=== PATIENT | female | born 1995 ===

== ENCOUNTER 2023-03-01 00:07 | Inpatient (IN) | payer MEDICAID ==
[2023-03-01] MEDS ORDERED: Misoprostol 25 MCG (1/4 of 100 MCG) Tab VAG PRN ×2 (00:14)
[2023-03-01] MEDS ORDERED: Terbutaline 1 MG/ML SDV SUBCUT PRN (00:14)
[2023-03-01] MEDS ORDERED: Oxytocin/0.9 % Sodium Chloride 30 UNIT/500 ML BAG IV SCH ×2 (00:15→00:45)
[2023-03-01] MEDS ORDERED: Carboprost Tromethamine 250 MCG/1 mL Vial IM PRN (00:45)
[2023-03-01] MEDS ORDERED: Tranexamic Acid IN NACL,ISO-OS 1,000 MG in Premix Bag 1 BAG IV PRN ×2 (00:45)
[2023-03-01] MEDS ORDERED: Sodium Chloride 0.9% 2.5 ML Syringe FLUSH PRN (00:45)
[2023-03-01] MEDS ORDERED: Sodium Chloride 0.9% 10 ML Syringe FLUSH PRN (00:45)
[2023-03-01] MEDS ORDERED: Butorphanol 1 MG/ML SDV IVPUSH PRN (00:45)
[2023-03-01] MEDS ORDERED: Misoprostol 200 MCG Tab PO PRN (00:45)
[2023-03-01] MEDS ORDERED: Methylergonovine 0.2 MG/1 ML Amp IM PRN ×2 (00:45→13:32)
[2023-03-01] MEDS ORDERED: Sodium Chloride 0.9% 20 ML SDV IV PRN (00:45)
[2023-03-01] MEDS ORDERED: Lidocaine 1% 50 ML MDV INJECT PRN (00:45)
[2023-03-01] MEDS ORDERED: Water For Irrigation,Sterile 1,000 ML Container IRR PRN (00:45)
[2023-03-01 00:59] LABS: HEMATOCRIT 33.3 % (37.0-47.0); HEMOGLOBIN 11.2 g/dL (12.0-16.0); MEAN CORPUSCULAR HEMOGLOBIN 27.6 pg (28.0-32.0); MEAN CORPUSCULAR HGB CONC 33.6 g/dL (32.0-36.0); MEAN PLATELET VOLUME 10.5 fL (9.4-12.3); PLATELET COUNT,PLT 267 K/uL (150-400); RED BLOOD CELL COUNT 4.06 M/uL (4.10-5.30)
[2023-03-01] MEDS ORDERED: Nalbuphine 10 MG/0.5 ML Syringe IVPUSH PRN (06:52)
[2023-03-01] MEDS: Lactated Ringers 1,000 ML IV SCH ×4 (07:30→12:35)
[2023-03-01] MEDS ORDERED: FLU (Flulaval Quad) 2023-24(6MOS UP)/PF 60 MCG/0.5 ML Syringe IM ONE (09:00)
[2023-03-01] MEDS ORDERED: Bupivacaine 0.5% 10 ML SDV ONE (09:09)
[2023-03-01] MEDS ORDERED: Ropivacaine/PF 400 MG/200 ML PCA ONE (09:10)
[2023-03-01] MEDS ORDERED: Phenylephrine HCl 0.5 MG/5 ML AMP ONE (09:30)
[2023-03-01] MEDS ORDERED: ePHEDrine 50 MG/ML SDV IVPUSH PRN ×2 (09:46)
[2023-03-01] MEDS ORDERED: Phenylephrine HCl 0.5 MG/5 ML AMP IVPUSH PRN (09:46)
[2023-03-01] MEDS ORDERED: Ropivacaine HCl/PF 400 MG in Premix Bag 1 BAG EPIDUR SCH (10:00)
[2023-03-01] MEDS ORDERED: ceFAZolin 1 GM Vial ONE (11:41)
[2023-03-01] MEDS ORDERED: Oxytocin 10 Units/1 ML SDV ONE ×2 (11:41→11:50)
[2023-03-01] MEDS ORDERED: Dexamethasone 4 MG/ML 5 ML MDV ONE ×2 (11:43→11:59)
[2023-03-01] MEDS ORDERED: Ondansetron 4 MG/2 ML SDV ONE (11:43)
[2023-03-01] MEDS ORDERED: Morphine PF 10 MG/10 ML SDV ONE (11:52)
[2023-03-01] MEDS ORDERED: Azithromycin 500 MG Vial ONE (11:53)
[2023-03-01] MEDS ORDERED: Ketorolac 30 MG/ML SDV ONE (11:57)
[2023-03-01] MEDS ORDERED: Ropivacaine 0.5% 5 MG/ML 30 ML SDV ONE (11:58)
[2023-03-01] MEDS ORDERED: Ondansetron 4 MG/2 ML SDV IVPUSH PRN ×2 (13:32→16:01)
[2023-03-01] MEDS ORDERED: Bisacodyl 10 MG Supp RECTAL PRN (13:32)
[2023-03-01] MEDS ORDERED: diphenhydrAMINE 50 MG/ML SDV IVPUSH PRN ×2 (13:32→16:01)
[2023-03-01] MEDS ORDERED: Lanolin 100% Cream 7 GM Tube TOP PRN (13:32)
[2023-03-01] MEDS ORDERED: Misoprostol 200 MCG Tab RECTAL PRN (13:32)
[2023-03-01] MEDS ORDERED: Oxytocin 10 Units/1 ML SDV IM PRN (13:32)
[2023-03-01] MEDS ORDERED: Aluminum Hydroxide/Magnesium Hydroxide/Simethicone XS Susp 30 ML Cup PO PRN (13:40)
[2023-03-01] MEDS ORDERED: Simethicone 80 MG Tab.Chew PO PRN (13:40)
[2023-03-01] MEDS ORDERED: oxyCODONE 5 MG Tab PO PRN (13:40)
[2023-03-01] MEDS ORDERED: Acetaminophen 325 MG Tab PO SCH (13:45)
[2023-03-01] MEDS ORDERED: Lactated Ringers 1,000 ML IV SCH (13:45)
[2023-03-01] MEDS ORDERED: Acetaminophen 1,000 MG in Premix Bag 1 BAG IV PRN (13:48)
[2023-03-01] MEDS: Acetaminophen 1,000 MG in Premix Bag 1 BAG IV SCH ×2 (14:12→20:07)
[2023-03-01] MEDS ORDERED: fentaNYL 100 MCG/2 ML SDV IVPUSH PRN (16:01)
[2023-03-01] MEDS ORDERED: Acetaminophen/oxyCODONE 325-5 MG Tab PO PRN (16:01)
[2023-03-01] MEDS: Ketorolac 30 MG/ML SDV IVPUSH SCH (19:34)
[2023-03-01] MEDS: Docusate Sodium 100 MG Cap PO SCH (21:25)
[2023-03-02] MEDS: Ketorolac 30 MG/ML SDV IVPUSH SCH ×3 (00:03→12:29)
[2023-03-02] MEDS: Acetaminophen 1,000 MG in Premix Bag 1 BAG IV SCH ×2 (01:08→07:31)
[2023-03-02 06:26] LABS: BASOPHILS ABSOLUTE AUTO 0.02 K/uL (0.00-0.20); BASOPHILS PERCENT AUTO 0.1 % (0.0-1.0); HEMATOCRIT 24.4 % (37.0-47.0); HEMOGLOBIN 8.3 g/dL (12.0-16.0); IMMATURE GRAN ABSOLUTE AUTO 0.09 K/uL (0.00-0.05); IMMATURE GRAN PERCENT AUTO 0.5 % (0.0-0.4); LYMPHOCYTES ABSOLUTE AUTO 1.87 K/uL (1.00-4.80); LYMPHOCYTES PERCENT AUTO 11.1 % (24.0-44.0); MEAN CORPUSCULAR HEMOGLOBIN 27.9 pg (28.0-32.0); MEAN CORPUSCULAR VOLUME 81.9 fL (83.0-99.0); MEAN PLATELET VOLUME 9.9 fL (9.4-12.3); MONOCYTES ABSOLUTE AUTO 1.43 K/uL (0.00-0.80); MONOCYTES PERCENT AUTO 8.5 % (0.0-8.0); NEUTROPHILS ABSOLUTE AUTO 13.39 K/uL (1.80-7.70); NEUTROPHILS PERCENT AUTO 79.8 % (41.0-71.0); PLATELET COUNT,PLT 249 K/uL (150-400); RED BLOOD CELL COUNT 2.98 M/uL (4.10-5.30)
[2023-03-02] MEDS: Docusate Sodium 100 MG Cap PO SCH ×2 (09:41→20:47)
[2023-03-02] MEDS: Sodium Ferric Gluconate Cmplex 125 MG in Sodium Chloride 0.9% 100 ML IV SCH (09:52)
[2023-03-02] MEDS: Acetaminophen 325 MG Tab PO SCH (20:46)
[2023-03-02] MEDS: Ibuprofen 800 MG Tab PO SCH (21:00)
[2023-03-03] MEDS: Acetaminophen 325 MG Tab PO SCH ×2 (03:12→08:42)
[2023-03-03] MEDS: Ibuprofen 800 MG Tab PO SCH ×2 (03:13→08:42)
[2023-03-03] MEDS: Sodium Ferric Gluconate Cmplex 125 MG in Sodium Chloride 0.9% 100 ML IV SCH (09:49)
== END 2023-03-03 12:18 | disposition home or self-care (01) | DRG 788 ==
LOC: MW.OB 00:07 → OBSVTOIN 13:32 → MW.OB 18:09
PROVIDERS: ADMIT Obstetrics & Gynecology; ATTEND Obstetrics & Gynecology
PROC: 3E0R3BZ Introduction of Anesthetic Agent into Spinal Canal, Percutaneous Approach (ICD-10-PCS; 2023-03-01)
PROC: 00HU33Z Insertion of Infusion Device into Spinal Canal, Percutaneous Approach (ICD-10-PCS; 2023-03-01)
PROC: 10D00Z1 Extraction of Products of Conception, Low, Open Approach (ICD-10-PCS; principal; 2023-03-01 11:45)
DX: O48.0 Post-term pregnancy (principal); O42.02 Full-term premature rupture of membranes, onset of labor within 24 hours of rupture; O76 Abnormality in fetal heart rate and rhythm complicating labor and delivery; Z37.0 Single live birth; Z3A.41 41 weeks gestation of pregnancy
CPT/HCPCS: 36415; 51702; 59025; 85025; 85027; 86592; 86850; 86900; 86901; A9270-GY; J0131; J0456; J0690; J1100; J1885; J2274; J2300; J2371; J2405; J2590; J2795; J2916; J3105; J3490; J7120

== ENCOUNTER 2023-12-22 18:29 | Emergency (ER) | payer MEDICAID ==
[2023-12-22] MEDS: Ketorolac 30 MG/ML SDV IM STA (19:09)
== END 2023-12-22 19:14 | disposition home or self-care (01) ==
LOC: MW.ED 18:29
DX: M25.561 Pain in right knee (principal); M25.562 Pain in left knee; Z79.899 Other long term (current) drug therapy; Z75.8 Other problems related to medical facilities and other health care
CPT/HCPCS: 96372; 99283; J1885

== ENCOUNTER 2025-02-07 13:22 | Emergency (ER) | payer MEDICAID | END 2025-02-07 15:19 | disposition home or self-care (01) | LOC: MW.ED 13:22 | DX: S63.612A Unspecified sprain of right middle finger, initial encounter (principal); Z79.899 Other long term (current) drug therapy; Z75.3 Unavailability and inaccessibility of health-care facilities; X58.XXXA Exposure to other specified factors, initial encounter | CPT/HCPCS: 73140-26-F7; 73140-F7; 99283 ==